=== PATIENT | female | born 1955 | race African-American/Black ===

== ENCOUNTER → 2016-11-17 | Outpatient (CLI) | payer OTHER ==
[2015-11-19 09:45] VITALS: BP 128/92
[~2016-11-17] MED LIST: CEPH500C PO; CHOL500016 PO; CHRO400T6 PO; CRESTOR40 MG PO; LOSA50TA6 PO; Losartan Potassium PO; OMEP40CA5 PO; POLY17PO5 PO; RANI150T6 PO; SITA1TAB7 PO; [UNRECOGNIZED DRUG - CODE] TP
--- NOTE | 2016-11-17 13:23 | RAD ---
EXAM: DIGITAL DIAGNOSTIC LT. HISTORY: Abnormal screening mammogram, further evaluation. COMPARISON: 11/01/2016, 09/18/2015, 08/29/2014. FINDINGS: Digital mammography was performed. Computer-aided detection (CAD) was utilized. Spot compression views of the left breast with CC and MLO projections were obtained as well as a true lateral view of the left breast. Breast parenchyma appears compressible. No persistent suspicious mammographic abnormality is identified. IMPRESSION: No persistent mammographic abnormality. Recommend return to annual screening. BI-RADS CATEGORY: 1 NEGATIVE RECOMMENDED FOLLOW-UP: 12M 12 MONTH FOLLOW-UP PQRS compliance statement: Patient information was entered into a reminder system with a target due date for the next mammogram. Mammography is a sensitive method for finding small breast cancers, but it does not detect them all and is not a substitute for careful clinical examination. A negative mammogram does not negate a clinically suspicious finding and should not result in delay in biopsying a clinically suspicious abnormality. "Our facility is accredited by the [employer] Mammography [employer]."
== END | disposition home or self-care (01) ==
LOC: MAMMO 12:38
PROVIDERS: ATTEND Family Medicine
DX: R92.8 Other abnormal and inconclusive findings on diagnostic imaging of breast (principal)
CPT/HCPCS: G0206; 77065

== ENCOUNTER → 2018-08-08 | Outpatient (CLI) | payer OTHER ==
[2015-11-19 09:45] VITALS: BP 128/92
[~2018-08-08] MED LIST changes: -LOSA50TA6 PO; +LOSA50TA86 PO; +RANI150T21 PO; -RANI150T6 PO
--- NOTE | 2018-08-08 15:13 | RAD ---
Right neck ultrasound, 08/08/2018: HISTORY: Painful neck The area of clinical concern in the upper neck on the right was carefully scanned. Several small benign-appearing cervical lymph nodes are seen. The largest of these measures 6 mm in short axis dimension. No definite pathologically enlarged lymph nodes are seen. No other mass or unusual fluid collection is evident. If clinical concern persists, CT scanning is suggested for further evaluation. Electronically signed by: Corey Garcia MD (08/08/2018 3:10 PM) [facility]
== END | disposition home or self-care (01) ==
LOC: US 09:58
PROVIDERS: ATTEND Registered Nurse
DX: M54.2 Cervicalgia (principal); R22.1 Localized swelling, mass and lump, neck
CPT/HCPCS: 76536

== ENCOUNTER → 2018-09-21 | Outpatient (CLI) | payer OTHER ==
[2015-11-19 09:45] VITALS: BP 128/92
--- NOTE | 2018-09-21 17:08 | RAD ---
CT of the neck without contrast, 09/21/2018: HISTORY: Neck pain Noncontrast scans were obtained as requested. This limits evaluation of the neck structures. The laryngeal region is unremarkable. No airway narrowing is seen. The thyroid gland is symmetric. No thyroid mass is evident. The parotid and submandibular glands are unremarkable. Several small bilateral cervical and submandibular lymph nodes are seen. The largest of these measure only approximately 7 mm in short axis dimension and therefore are not considered to be enlarged. There are mild degenerative changes involving scattered facet joints bilaterally in the cervical spine. No fracture or subluxation is evident. IMPRESSION: 1. Mild degenerative changes in the cervical spine. 2. The neck is otherwise unremarkable. PQRS Compliance Statement: One or more of the following individualized dose reduction techniques were utilized for this examination: 1. Automated exposure control 2. Adjustment of the mA and/or kV according to patient size 3. Use of iterative reconstruction technique Electronically signed by: Corey Garcia MD (09/21/2018 5:05 PM) [facility]
== END | disposition home or self-care (01) ==
LOC: CT 09:28
PROVIDERS: ATTEND Registered Nurse
DX: M47.812 Spondylosis without myelopathy or radiculopathy, cervical region (principal); R59.1 Generalized enlarged lymph nodes
CPT/HCPCS: 70490

== ENCOUNTER → 2019-01-02 | Outpatient (CLI) | payer OTHER ==
[2015-11-19 09:45] VITALS: BP 128/92
[~2019-01-02] MED LIST changes: +RANI-376 PO; -RANI150T21 PO
--- NOTE | 2019-01-02 10:45 | RAD ---
History: Routine screening. Technique: Bilateral digital mammographic routine views were obtained with CAD - computer aided detection. Comparison: Previous mammogram from 2017.. Findings: Breast Tissue Density C : The breast tissue is heterogeneously dense which may obscure small masses. There are no suspicious masses, microcalcifications or areas of architectural distortion. Impression: No suspicious findings. BI-RADS Category 2: Benign findings. Normal interval followup. Your mammogram demonstrates that you have dense breast tissue, which could hide abnormalities, and if you have other risk factors for breast cancer that have been identified, you might benefit from supplemental screening tests that may be suggested by your ordering physician. Dense breast tissue, in and of itself, is a relatively common condition. This information is not provided to cause undue concern, but rather to raise your awareness and to promote discussion with your physician regarding the presence of other risk factors, in addition to dense breast tissue. A report of your mammography results will be sent to you and your physician. You should contact your physician if you have any questions or concerns regarding this report. A mammogram does not have 100% sensitivity and therefore a negative imaging study should not delay further work up of a suspicious abnormality. The patient will receive a letter with the results in the mail. Patient information is entered into the reminder system with a target due date for the next screening mammogram. The patient will receive a reminder. "Our facility is accredited by the [employer] Mammography Program."
== END | disposition home or self-care (01) ==
LOC: MAMMO 09:02
PROVIDERS: ATTEND Registered Nurse
DX: Z12.31 Encounter for screening mammogram for malignant neoplasm of breast (principal)
CPT/HCPCS: 77063; 77067

== ENCOUNTER → 2019-06-11 | Outpatient (CLI) | payer OTHER ==
[2015-11-19 09:45] VITALS: BP 128/92
[~2019-06-11] MED LIST changes: +OMEP40CA45 PO; -OMEP40CA5 PO
--- NOTE | 2019-06-11 12:22 | RAD ---
EXAM: Chest, 2 views. HISTORY: Cough. COMPARISON: 11/19/2015 FINDINGS: 2 views of chest are obtained. There is no infiltrate, pleural effusion or pneumothorax. The heart is normal in size. There is slight hyperinflation likely due to inspiratory effort. There are few calcified granulomas. IMPRESSION: No acute pulmonary finding. Electronically signed by: Vicenta Whalen MD (06/11/2019 12:19 PM) [facility]
== END | disposition home or self-care (01) ==
LOC: PMG 10:54
PROVIDERS: ATTEND Registered Nurse
DX: J84.10 Pulmonary fibrosis, unspecified (principal)
CPT/HCPCS: 71046

== ENCOUNTER → 2019-12-06 | Outpatient (CLI) | payer OTHER ==
[2015-11-19 09:45] VITALS: BP 128/92
--- NOTE | 2019-12-06 13:25 | RAD ---
EXAM: Left knee, 3 views. HISTORY: Pain. COMPARISON: None. FINDINGS: 3 views of the left knee are obtained. There is mild tricompartmental spurring. There is no susceptibility superior patella. There is no fracture, dislocation or subluxation. No significant joint effusion is seen. IMPRESSION: Mild tricompartmental osteoarthritis of the left knee. Electronically signed by: Vicenta Whalen MD (12/06/2019 1:23 PM) [facility]
== END ==
LOC: RAD 12:19
PROVIDERS: ATTEND Family Medicine
DX: M17.12 Unilateral primary osteoarthritis, left knee (principal)
CPT/HCPCS: 73562

== ENCOUNTER → 2020-04-10 | Outpatient (CLI) | payer MEDICARE ==
[2015-11-19 09:45] VITALS: BP 128/92
--- NOTE | 2020-04-10 12:35 | RAD ---
4 views the cervical spine without comparison for reasons unspecified. FINDINGS: There is straightening of normal cervical lordosis. Mild multilevel uncovertebral and facet arthrosis is present. Prevertebral soft tissues are grossly unremarkable. No fracture or acute osseous or alignment abnormality. Atlantoaxial articulation is intact. IMPRESSION: 1. Multilevel uncovertebral and facet arthrosis with no fracture or acute osseous or alignment abnormality. Electronically signed by: Fernando Daniel MD (04/10/2020 12:31 PM) [id number]
--- NOTE | 2020-04-10 12:47 | RAD ---
Bone densitometry. Clinical history: Postmenopausal [place]ro-[place] female. Screening. Lumbar spine: L1-L4. The technical acquisition is adequate. The bone mineral density across the aggregate of L1-L4 is 1.028 gm/cm2. This corresponds to a Z-score of -1.5 which is consistent with low bone mineral density. At this bone density level, fracture risk is increased. Hip: Right. The technical acquisition is adequate. The lowest bone mineral density between the neck and total femur occurs at the the right femoral neck and is 0.892 gm/cm2. This corresponds to a Z-score of -1.2 which is consistent with low bone mineral density. At this bone density level, fracture risk is increased. Impression: 1. Decrease bone mineral density of the lumbar spine and right hip. Note: T-Score definitions established by the World Health Organization: 1. Normal: T-score is -1.0 or above. 2. Osteopenia: T-score is between -1.0 and -2.5. 3. Osteoporosis: T-score is -2.5 or below. For patients in whom the T-Score does not apply, a Z-Score below -2.0 is consistent with abnormal bone mineral density. Electronically signed by: Fernando Daniel MD (04/10/2020 12:44 PM) [id number]
== END ==
LOC: DXRAD 12:12
PROVIDERS: ATTEND Family Medicine
DX: M47.812 Spondylosis without myelopathy or radiculopathy, cervical region (principal); M81.0 Age-related osteoporosis without current pathological fracture
CPT/HCPCS: 72040; 77080

== ENCOUNTER → 2021-02-27 | Outpatient (CLI) | payer MEDICARE ==
[2015-11-19 09:45] VITALS: BP 128/92
[~2021-02-27] MED LIST changes: -OMEP40CA45 PO; +OMEP40CA7 PO
--- NOTE | 2021-02-27 16:46 | RAD ---
EXAM: AP view both knees, lateral and tangential patellar view left knee DATE: 02/27/2021 10:33 AM INDICATION: Reason: KNEE PAIN / Spl. Instructions: / History: COMPARISON: No Prior FINDINGS: No acute fracture or dislocation. No joint effusion. Small patellar enthesophytes. Small osteophytes lateral compartment. Joint spaces preserved. Neutral patellar tracking. IMPRESSION: 1. No acute fracture or dislocation. 2. Left knee joint osteoarthritis. 3. Patellar enthesophytes. Electronically signed by: Brien Damon MD (02/27/2021 4:43 PM) [id number]
== END ==
LOC: RAD 10:30
PROVIDERS: ATTEND Orthopaedic Surgery
DX: M17.12 Unilateral primary osteoarthritis, left knee (principal); M77.8 Other enthesopathies, not elsewhere classified; M25.762 Osteophyte, left knee; M25.761 Osteophyte, right knee
CPT/HCPCS: 73560; 73565